=== PATIENT | female | born 1970 | race Caucasian/White ===

== ENCOUNTER → 2024-01-24 06:27 | Day surgery (SDC) | payer BC, SELFPAY | LOC: GI 06:27 | PROVIDERS: ATTENDING PHYSICIAN Internal Medicine Gastroenterology | DX: Z12.11 Encounter for screening for malignant neoplasm of colon (principal); Z86.010 Personal history of colon polyps; Z87.19 Personal history of other diseases of the digestive system; K64.8 Other hemorrhoids; D49.0 Neoplasm of unspecified behavior of digestive system | CPT/HCPCS: G0105 ==

== ENCOUNTER → 2024-02-18 13:10 | Outpatient (REF) | payer BC, SELFPAY | LOC: WDC 13:10 | PROVIDERS: ATTENDING PHYSICIAN Obstetrics & Gynecology; FAMILY PHYSICIAN Family Medicine | DX: Z12.31 Encounter for screening mammogram for malignant neoplasm of breast (principal) | CPT/HCPCS: 77063; 77067 ==

== ENCOUNTER → 2024-10-02 10:13 | Outpatient (REF) | payer BC, SELFPAY | LOC: RAD 10:13 | PROVIDERS: ATTENDING PHYSICIAN Obstetrics & Gynecology; FAMILY PHYSICIAN Family Medicine | DX: D25.9 Leiomyoma of uterus, unspecified (principal) | CPT/HCPCS: 76830; 76856 ==

== ENCOUNTER 2024-10-20 06:29 | Day surgery (SDC) | payer BC, SELFPAY ==
[2024-10-16 14:01] VITALS: BMI 20.1
[2024-10-16 14:30] LABS: % Basophils 0.7 % (0-2); % Eosinophils 2.4 % (0-6); % Immature Granulocytes 0.4 % (0-0.5); % Lymphocytes 22.3 % (20.5-51.1); % Neutrophils 66.2 % (42.2-75.2); Absolute Basophils 0.1 10^3/uL (0-0.2); Absolute Eosinophils 0.2 10^3/uL (0-0.7); Absolute Lymphocytes 1.7 10^3/uL (1.2-3.4); Absolute Monocytes 0.6 10^3/uL (0.1-0.6); Hematocrit 41.1 % (37.0-47.0); Hemoglobin 13.9 g/dL (12.0-16.0); Mean Corp Hgb Conc. 33.8 g/dL (33.0-37.0); Mean Corpuscular Hgb 30.8 pg (27.0-31.0); Mean Corpuscular Volume 90.9 fL (81.0-99.0); Mean Platelet Volume 8.6 fL (7.4-10.4); Nucleated Red Blood Cells % 0 %; Platelet Count 323 10^3/uL (130-400); Red Blood Cell Count 4.52 10^6/uL (4.20-5.40); Red Cell Dist. Width 11.9 % (11.5-14.5); White Blood Cell Count 7.6 10^3/uL (4.8-10.8)
[2024-10-16 14:53] LABS: Blood Urea Nitrogen 16 mg/dl (7-17); Calcium 9.7 mg/dl (8.4-10.2); Carbon Dioxide 28 mmol/L (22-30); Chloride 98 mmol/L (98-107); Estimated Creatinine Clearance 59 ml/min; Glucose 95 mg/dl (70-99); Potassium 4.4 mmol/L (3.5-5.1); Sodium 137 mmol/L (135-145); eGFR > 60.00
[2024-10-20 09:12] VITALS: BP 134/86
[2024-10-20] MEDS: TYLENOL 1000 MG PO (09:27)
[2024-10-20] MEDS: NEURONTIN 300 MG PO (09:27)
[2024-10-20] MEDS: NORMOSOL-R/PLASMALYTE-A 1000 IV (09:28)
[2024-10-20 09:43] VITALS: BMI 20.1
[2024-10-20 11:22] VITALS: BP 119/61; BP 134/86
[2024-10-20 11:30] VITALS: BP 111/60
[2024-10-20 11:55] VITALS: BP 117/54
[2024-10-20 12:15] VITALS: BP 120/66
[2024-10-20 12:30] VITALS: BP 122/68
--- NOTE | 2024-10-22 10:27 | W.IMMPOSTOP ---
Surgical Immed Post Op Note
-
Late entry note from 10/20/24:
Primary Surgeon: Samuel Crawford DO
Assisting Surgeon: n/a
Pre-op Diagnosis: Abnormal thickened endometrium on ultrasound; fibroid uterus, hx of endometrial thermal ablation, unable to complete office evaluation due to cervical stenosis
Post-op Diagnosis: same; endometrial scarring/adhesions making evaluation impossble
Procedure Performed: Hysteroscopy D&C
Anesthesia Type: general LMA
Specimen / Cultures: 1. endocervical curetting 2, endometrial curettings
Estimated Blood Loss: 2ml
Complications: none
Operative Findings: Uterine cavity is completely scarred and filled with adhesions, making evaluation impossible. Unable to identify upper uterine cavity, tubal ostia not able to be visualized.
COunts correct times 2
== END 2024-10-20 12:36 | disposition home or self-care (01) ==
LOC: SDS 06:29
PROVIDERS: ATTENDING PHYSICIAN Obstetrics & Gynecology; FAMILY PHYSICIAN Family Medicine
DX: D25.9 Leiomyoma of uterus, unspecified (principal); N88.2 Stricture and stenosis of cervix uteri
CPT/HCPCS: 58558; 88305; 36415; 80048; 85025; 86850; 86900; 86901; 93005

== ENCOUNTER → 2024-10-30 08:22 | Outpatient (REF) | payer BC, SELFPAY | LOC: MRI 3T 08:22 | PROVIDERS: ATTENDING PHYSICIAN Obstetrics & Gynecology; FAMILY PHYSICIAN Family Medicine | DX: R93.89 Abnormal findings on diagnostic imaging of other specified body structures (principal); R93.5 Abnormal findings on diagnostic imaging of other abdominal regions, including retroperitoneum; R89.9 Unspecified abnormal finding in specimens from other organs, systems and tissues | CPT/HCPCS: 72197; A9575 ==

== ENCOUNTER 2024-12-08 06:21 | Day surgery (SDC) | payer BC, SELFPAY ==
[2024-12-02 11:31] LABS: Hemoglobin 14.1 g/dL (12.0-16.0); Mean Corp Hgb Conc. 33.6 g/dL (33.0-37.0); Mean Corpuscular Hgb 30.7 pg (27.0-31.0); Mean Corpuscular Volume 91.5 fL (81.0-99.0); Mean Platelet Volume 8.7 fL (7.4-10.4); Platelet Count 295 10^3/uL (130-400); Red Blood Cell Count 4.59 10^6/uL (4.20-5.40); Red Cell Dist. Width 12.5 % (11.5-14.5); White Blood Cell Count 4.5 10^3/uL (4.8-10.8)
[2024-12-02 13:46] LABS: Blood Urea Nitrogen 19 mg/dl (7-17); Calcium 9.8 mg/dl (8.4-10.2); Carbon Dioxide 28 mmol/L (22-30); Chloride 100 mmol/L (98-107); Glucose 98 mg/dl (70-99); Potassium 4.6 mmol/L (3.5-5.1); Sodium 137 mmol/L (135-145); eGFR > 60.00
[2024-12-02 14:13] VITALS: BMI 20.5
[2024-12-08] VITALS (14 sets, daily range): BP systolic 95–132; BP diastolic 67–93; BMI 20.5
[2024-12-08] MEDS: NEURONTIN 300 MG PO (09:39)
[2024-12-08] MEDS: NORMOSOL-R/PLASMALYTE-A 1000 IV (09:41)
[2024-12-08] MEDS: TYLENOL 1000 MG PO (09:42)
[2024-12-08] MEDS: VANCOCIN 200 IV (10:09)
[2024-12-08] MEDS: HEPARIN 5000 UNITS SC (10:09)
--- NOTE | 2024-12-08 14:50 | W.IMMPOSTOP ---
Addendum entered and electronically signed by Jackie Crawford DO 12/08/24 23:19:
Correction to preop dx/postop dx:
Delete postmenopausal bleeding. This is incorrect.
Preop dx: Thickened endometrial lining, inability to properly evaluate due to dense scarring of endometrial cavity from prior thermal ablation; uterine fibroids.
Prior history of endometrial ablation, uterine synechia.
Postop dx: same, abdominal adhesions.
Original Note:
Surgical Immed Post Op Note
-
Primary Surgeon: Jackie Crawford DO
Wire Stretcher: REJI Pierre
Pre-op Diagnosis: Postmenopausal bleeding, inability to properly evaluate due to endometrial scarring from endometrial ablation; uterine fibroids
Post-op Diagnosis: same
Procedure Performed: Robotic Total laparoscopic hysterectomy bilateral salpingo-oopherectomy, lysis adhesions
Anesthesia Type: general ET Dr. Barroso
Specimen / Cultures: uterus, cervix, bilateral fallopian tubes and bilateral ovaries
Estimated Blood Loss: 10ml
Urine output: 200mL clear yellow urine.
Fluids: 1000mL
Operative Findings: Enlarged fibroid uterus with multiple fibroids including a large posterior fibroid approx 7cm and multiple left sided fundal fibroids. Normal appearing fallopian tubes and atrophic ovaries.
Filmy adhesions in right lower quadrant just below level of lateral right port.
Complications: none
Counts correct times 2.
Stable to recovery.
[2024-12-08] MEDS: DILAUDID 0.25 MG IV (15:38)
[2024-12-08] MEDS: TYLENOL 650 MG PO (18:46)
[2024-12-08] MEDS: ZOFRAN 4 MG IV (19:43)
--- NOTE | 2024-12-08 21:20 | PTCARENOTE ---
Patient received from [facility] at 20:05 she was nauseas and receiving a bolus of Normosol feeling tired. Patient was able to sit at bedside at 2100, was brought back to PACU questions answered. They had received D/C instructions in [facility], I.V x2
discontinued post 500cc of Normosol. Patient nausea return vomited approximately 30cc of bile. Patient D/C to home via wheelchair.
== END 2024-12-08 21:20 | disposition home or self-care (01) ==
LOC: SDS 06:21
PROVIDERS: ATTENDING PHYSICIAN Obstetrics & Gynecology; FAMILY PHYSICIAN Family Medicine
DX: N85.00 Endometrial hyperplasia, unspecified (principal); D25.9 Leiomyoma of uterus, unspecified; K66.0 Peritoneal adhesions (postprocedural) (postinfection)
CPT/HCPCS: 58571; 88307; 36415; 80048; 85027; 86850; 86900; 86901

== ENCOUNTER → 2025-03-11 16:17 | Outpatient (REF) | payer BC, SELFPAY | LOC: WDC 16:17 | PROVIDERS: ATTENDING PHYSICIAN Obstetrics & Gynecology; FAMILY PHYSICIAN Family Medicine | DX: Z12.31 Encounter for screening mammogram for malignant neoplasm of breast (principal) | CPT/HCPCS: 77063; 77067 ==

== ENCOUNTER → 2025-05-18 14:49 | Outpatient (REF) | payer BC, SELFPAY | LOC: HWRAD 14:49 | PROVIDERS: ATTENDING PHYSICIAN Family Medicine | DX: R59.0 Localized enlarged lymph nodes (principal) | CPT/HCPCS: 76536 ==

== ENCOUNTER → 2025-06-08 14:28 | Outpatient (REF) | payer BC, SELFPAY | LOC: RAD 14:28 | PROVIDERS: ATTENDING PHYSICIAN Internal Medicine Rheumatology; FAMILY PHYSICIAN Family Medicine | DX: M19.041 Primary osteoarthritis, right hand (principal); M19.042 Primary osteoarthritis, left hand | CPT/HCPCS: 73130 ==